=== PATIENT | male | born 1985 | race Caucasian/White ===

== ENCOUNTER 2017-11-06 16:54 | Emergency (ER) | payer OTHER ==
[2017-11-06] MEDS: KETOROLAC 60 MG/2 ML INJ. IM (17:22)
== END 2017-11-06 18:15 | disposition home or self-care (01) ==
LOC: ER 16:54
DX: M25.561 Pain in right knee (principal); W10.9XXA Fall (on) (from) unspecified stairs and steps, initial encounter; Y93.89 Activity, other specified; Y99.8 Other external cause status; Y92.89 Other specified places as the place of occurrence of the external cause
CPT/HCPCS: 29505; 73562; 96372; 99284-25; J1885

== ENCOUNTER → 2020-01-10 | Outpatient (CLI) | payer OTHER ==
[2017-11-06 17:02] VITALS: BP 180/90
[~2020-01-10] MED LIST: CEPH-264 PO; TRAM50TA PO
--- NOTE | 2020-01-10 15:36 | KCIC ---
EXAM: Right hand, 2 views. HISTORY: First interphalangeal joint pain. COMPARISON: None. FINDINGS: 2 views of the right hand are obtained. There is no fracture, dislocation or subluxation. No foreign body is seen. The alignment and joint spaces are unremarkable. IMPRESSION: No acute osseous finding. Electronically signed by: Rosa Oro MD (01/10/2020 3:32 PM) [id number]
== END | disposition home or self-care (01) ==
LOC: KCIC 14:52
PROVIDERS: ATTEND Family Medicine
DX: M79.644 Pain in right finger(s) (principal)
CPT/HCPCS: 73120